=== PATIENT | male | born 1975 | race Caucasian/White ===

== ENCOUNTER → 2020-04-04 | Outpatient (CLI) | payer OTHER ==
[~2020-04-04] MED LIST: ALBU2.5V8 IH; BUPIVACAINE MPF 0.25% 10 ML VIAL. ONE; CELE200C PO; CETI10TA74 PO; DICL100G18 TP; FLUT1DIS3 IH; GABA-586 PO; HYDR50TA PO; LEXAPRO20 MG PO; LIDO1ADH TP; LIDOCAINE 1% PF 30 ML VIAL. ONE; METH-38 PO; RIZA10TA6 PO; TOPI25TA7 PO; methylPREDNISolone ACETATE 80 MG/ML VIAL. ONE
[2020-04-04 12:02] VITALS: BP 157/87
== END | disposition home or self-care (01) ==
LOC: SURG 11:30
PROVIDERS: ATTEND Anesthesiology
DX: M17.0 Bilateral primary osteoarthritis of knee (principal); M79.10 Myalgia, unspecified site; M54.12 Radiculopathy, cervical region; M47.816 Spondylosis without myelopathy or radiculopathy, lumbar region; Z88.0 Allergy status to penicillin; Z88.8 Allergy status to other drugs, medicaments and biological substances; Z79.899 Other long term (current) drug therapy
CPT/HCPCS: 20610; 77002; J1040; J3490